=== PATIENT | female | born 1985 | race Caucasian/White ===

== ENCOUNTER 2018-09-06 18:17 | Emergency (ER) | payer OTHER ==
[~2018-09-06] VITALS: Ht 157.5 cm; Wt 176.9 kg
[~2018-09-06 18:17] MED LIST: ADVAIR HFA 230M12 GM INH; CLONAZEPAM 1 MG1 M1 PO; DILANTIN100 MG PO; TRAZODONE HCL100 MG; VENTOLIN HFA 1818 GM; VENTOLIN HFA 1818 GM INH
[2018-09-06 19:44] VITALS: BP 115/77
== END 2018-09-06 19:16 | disposition home or self-care (01) ==
LOC: ER 18:17
DX: J45.901 Unspecified asthma with (acute) exacerbation (principal); F31.9 Bipolar disorder, unspecified; F17.210 Nicotine dependence, cigarettes, uncomplicated; Z98.890 Other specified postprocedural states; Z90.49 Acquired absence of other specified parts of digestive tract